=== PATIENT | female | born 1975 | race Asian ===

== ENCOUNTER 2021-12-17 11:34 | Outpatient (CLI) | payer OTHER, SELFPAY ==
[2021-12-17 12:51] LABS: Albumin* 4.8 g/dL (3.3-5.0); Chloride* 99 mmol/L (96-114)
[2021-12-17 12:52] LABS: Potassium* 4.4 mmol/L (3.6-5.1); Sodium* 138 mmol/L (135-149)
[2021-12-17 12:53] LABS: Iron* 118 ug/dL (37-170)
[2021-12-17 12:54] LABS: Aspartate Amino Transferase* 103 U/L (12-35); Bilirubin Total* 0.7 mg/dL (0.1-1.5); Blood Urea Nitrogen* 12 mg/dL (5-24); Carbon Dioxide* 28 mmol/L (20-32); Cholesterol* 184 mg/dL (90-199); Creatinine* 0.6 mg/dL (0.5-1.5); Estimated Glomerular Filt Rate 111 ml/min; Total Protein* 8.6 g/dL (6.0-8.3)
[2021-12-17 12:55] LABS: Alanine Aminotransferase* 89 U/L (4-35); Alkaline Phosphatase* 81 U/L (40-150); Calcium* 9.3 mg/dL (8.4-10.6); Glucose* 102 mg/dL (60-115); HDL Cholesterol* 50 mg/dL (>=50); LDL Cholesterol Calculated 108 mg/dL (<100); Triglycerides* 129 mg/dL (40-149)
[2021-12-17 13:21] LABS: Creatinine Urine 136.3 mg/dL
[2021-12-17 13:26] LABS: Microalbumin Creatinine Ratio 100 mg/g (0-30); Microalbumin Urine 14 mg/dL
== END 2021-12-17 11:35 | disposition home or self-care (01) ==
PROVIDERS: PCP Family Medicine; Visit Provider Family Medicine
DX: D50.9 Iron deficiency anemia, unspecified (principal); E11.9 Type 2 diabetes mellitus without complications; E78.5 Hyperlipidemia, unspecified; I10 Essential (primary) hypertension
CPT/HCPCS: 80053; 80061; 82043; 82570; 83540

== ENCOUNTER 2022-04-20 09:19 | Outpatient (CLI) | payer OTHER, SELFPAY ==
[2022-04-20 11:01] LABS: Creatinine Urine 14.1 mg/dL
[2022-04-20 11:06] LABS: Microalbumin Creatinine Ratio 70 mg/g (0-30); Microalbumin Urine 1 mg/dL
[2022-04-20 12:35] LABS: Albumin* 4.8 g/dL (3.3-5.0); Chloride* 100 mmol/L (96-114); Potassium* 4.6 mmol/L (3.6-5.1); Sodium* 139 mmol/L (135-149)
[2022-04-20 12:37] LABS: Cholesterol* 223 mg/dL (90-199); Creatinine* 0.6 mg/dL (0.5-1.5); Estimated Glomerular Filt Rate 111 ml/min
[2022-04-20 12:38] LABS: Alanine Aminotransferase* 48 U/L (4-35); Alkaline Phosphatase* 65 U/L (40-150); Aspartate Amino Transferase* 35 U/L (12-35); Bilirubin Total* 0.6 mg/dL (0.1-1.5); Blood Urea Nitrogen* 9 mg/dL (5-24); Carbon Dioxide* 29 mmol/L (20-32); Glucose* 92 mg/dL (60-115); Total Protein* 8.1 g/dL (6.0-8.3); Triglycerides* 250 mg/dL (40-149)
[2022-04-20 12:39] LABS: Calcium* 9.7 mg/dL (8.4-10.6); HDL Cholesterol* 45 mg/dL (>=50); LDL Cholesterol Calculated 128 mg/dL (<100)
[2022-04-20 12:43] LABS: Vitamin D 25 Hydroxy* 51 ng/mL (30-80)
== END 2022-04-20 09:20 | disposition home or self-care (01) ==
PROVIDERS: PCP Family Medicine; Visit Provider Family Medicine
DX: Z01.419 Encounter for gynecological examination (general) (routine) without abnormal findings (principal); E11.9 Type 2 diabetes mellitus without complications; E55.9 Vitamin D deficiency, unspecified; I10 Essential (primary) hypertension; E78.5 Hyperlipidemia, unspecified
CPT/HCPCS: 80053; 80061; 82043; 82306; 82570

== ENCOUNTER 2022-11-11 15:24 | Outpatient (CLI) | payer OTHER, SELFPAY ==
--- NOTE | 2022-11-11 15:20 | CRLHL7_ITS ---
For Patients: As a result of the Century Cures Act, medical imaging exams and procedure reports are released immediately into your electronic medical record. You may view this report before your referring provider. If you have questions, please contact your health care provider. BILATERAL SCREENING MAMMOGRAM WITH COMPUTER-AIDED DETECTION AND TOMOSYNTHESIS TECHNIQUE: CC and MLO views were obtained. These mammographic images have been obtained using full-field digital technique. These mammographic images were interpreted with the benefit of computer-aided detection. Breast Tomosynthesis was used in this interpretation. COMPARISON FILM: 04/28/21, 07/17/19, 05/19/17. FINDINGS: The breasts are heterogeneously dense, which may obscure small masses IMPRESSION: There is no radiographic evidence for malignancy. ASSESSMENT: BI-RADS Category 1: Negative RECOMMENDATION: Routine screening mammogram in 1 year. A lay language report of this examination will be provided to the patient. Donnie Vergara M.D. Diagnostic Radiologist [email or web address] Transcribed: 5:06 p.dolores hu/Dictated by: Donnie Vergara MD @ 11/12/2022 1:00:00 PM (Electronically Signed)
== END 2022-11-11 15:25 | disposition home or self-care (01) ==
LOC: MAMMO 15:25
PROVIDERS: PCP Family Medicine; Visit Provider Family Medicine
DX: Z12.31 Encounter for screening mammogram for malignant neoplasm of breast (principal); R92.2 Inconclusive mammogram
CPT/HCPCS: 77063; 77067

== ENCOUNTER 2023-04-22 08:15 | Outpatient (CLI) | payer OTHER, SELFPAY | END 2023-04-22 08:16 | disposition home or self-care (01) | LOC: NFLDREF 04-23 13:50 | PROVIDERS: PCP Family Medicine; Referring Provider Family Medicine; Visit Provider Family Medicine | DX: E11.29 Type 2 diabetes mellitus with other diabetic kidney complication (principal); E55.9 Vitamin D deficiency, unspecified; E78.5 Hyperlipidemia, unspecified; I10 Essential (primary) hypertension; R80.9 Proteinuria, unspecified | CPT/HCPCS: 80053; 80061; 82043; 82306; 82570 ==

== ENCOUNTER 2023-10-08 09:00 | Outpatient (CLI) | payer BC, OTHER, SELFPAY ==
--- NOTE | 2023-10-08 10:05 | W.ANESCHARGE ---
Anesthesia Charges Start Date/Time Anesthesia Start Date: 10/08/23 Anesthesia Start Time: 09:33 Stop Date/Time Anesthesia Stop Date: 10/08/23 Anesthesia Stop Time: 10:02
--- NOTE | 2023-10-08 10:19 | W.ANESCHARGE ---
Anesthesia Charges Start Date/Time Anesthesia Start Date: 10/08/23 Anesthesia Start Time: 09:33 Stop Date/Time Anesthesia Stop Date: 10/08/23 Anesthesia Stop Time: 10:02
== END 2023-10-08 09:01 | disposition home or self-care (01) ==
LOC: OP CLINIC 09:01
PROVIDERS: PCP Family Medicine; Visit Provider Internal Medicine
DX: Z12.11 Encounter for screening for malignant neoplasm of colon (principal); K63.5 Polyp of colon
CPT/HCPCS: 00811; 45380; 45385; 88305; J2704

== ENCOUNTER 2023-10-27 10:16 | Outpatient (CLI) | payer BC, OTHER, SELFPAY | END 2023-10-27 10:17 | disposition home or self-care (01) | LOC: NFLDREF 11-04 15:23 | PROVIDERS: PCP Family Medicine; Referring Provider Family Medicine; Visit Provider Family Medicine | DX: R74.8 Abnormal levels of other serum enzymes (principal); E11.29 Type 2 diabetes mellitus with other diabetic kidney complication; R80.9 Proteinuria, unspecified; Z79.84 Long term (current) use of oral hypoglycemic drugs | CPT/HCPCS: 80053 ==

== ENCOUNTER 2024-05-01 11:32 | Outpatient (CLI) | payer BC, OTHER, SELFPAY | END 2024-05-01 11:33 | disposition home or self-care (01) | LOC: NFLDREF 05-02 06:03 | PROVIDERS: PCP Family Medicine; Referring Provider Family Medicine; Visit Provider Family Medicine | DX: E78.5 Hyperlipidemia, unspecified (principal); R80.9 Proteinuria, unspecified; E55.9 Vitamin D deficiency, unspecified; E11.29 Type 2 diabetes mellitus with other diabetic kidney complication; I10 Essential (primary) hypertension; M81.0 Age-related osteoporosis without current pathological fracture; Z79.899 Other long term (current) drug therapy | CPT/HCPCS: 80053; 80061; 82043; 82306; 82570; 82607 ==

== ENCOUNTER 2024-09-18 14:35 | Outpatient (CLI) | payer BC, OTHER, SELFPAY ==
--- NOTE | 2024-09-18 14:40 | CRLHL7_ITS ---
For Patients: As a result of the Century Cures Act, medical imaging exams and procedure reports are released immediately into your electronic medical record. You may view this report before your referring provider. If you have questions, please contact your health care provider. INDICATION: BILATERAL SCREENING MAMMOGRAM, ASYMPTOMATIC 49 Y/O FEMALE COMPARISON: 11/11/2022, 04/28/2021, 07/17/2019 TECHNIQUE: Digital mammogram in CC and MLO projections including computer-aided detection (CAD) and tomosynthesis. BREAST COMPOSITION: There are scattered areas of fibroglandular density. FINDINGS: No suspicious findings. ASSESSMENT: BI-RADS 1 Negative RECOMMENDATION: Annual screening mammogram. A lay language report of this examination will be provided to the patient. Dictated by: Donnie Vergara MD @ 09/19/2024 09:50:32 (Electronically Signed)
== END 2024-09-18 14:36 | disposition home or self-care (01) ==
LOC: MAMMO 14:35
PROVIDERS: PCP Family Medicine; Visit Provider Family Medicine
DX: Z12.31 Encounter for screening mammogram for malignant neoplasm of breast (principal)
CPT/HCPCS: 77063; 77067

== ENCOUNTER 2024-10-09 10:02 | Outpatient (CLI) | payer BC, OTHER, SELFPAY | END 2024-10-09 10:03 | disposition home or self-care (01) | LOC: NFLDREF 19:56 | PROVIDERS: PCP Family Medicine; Referring Provider Family Medicine; Visit Provider Family Medicine | DX: M81.0 Age-related osteoporosis without current pathological fracture (principal); E78.5 Hyperlipidemia, unspecified; I10 Essential (primary) hypertension; E11.29 Type 2 diabetes mellitus with other diabetic kidney complication; R80.9 Proteinuria, unspecified; K76.0 Fatty (change of) liver, not elsewhere classified; Z11.59 Encounter for screening for other viral diseases | CPT/HCPCS: 80053; 80061; 82043; 82306; 82570; 86706 ==

== ENCOUNTER 2025-04-27 09:45 | Outpatient (CLI) | payer BC, OTHER, SELFPAY | END 2025-04-27 09:46 | disposition home or self-care (01) | LOC: NFLDREF 05-04 07:09 | PROVIDERS: PCP Family Medicine; Referring Provider Family Medicine; Visit Provider Family Medicine | DX: I10 Essential (primary) hypertension (principal); E11.29 Type 2 diabetes mellitus with other diabetic kidney complication; R80.9 Proteinuria, unspecified; E55.9 Vitamin D deficiency, unspecified; E78.5 Hyperlipidemia, unspecified; Z79.899 Other long term (current) drug therapy | CPT/HCPCS: 80053; 80061; 82043; 82306; 82570; 82607 ==